=== PATIENT | female | born 1980 ===

== ENCOUNTER → 2018-11-10 | Day surgery (SDC) | payer OTHER ==
[~2018-11-10] MED LIST: KETO10TA2 PO; PERCOCET 5-3251 EACH PO; TYLENOL-CODEINE1 TAB PO; [UNRECOGNIZED DRUG - OTHER]
== END | disposition home or self-care (01) ==
LOC: ADM 11-07 10:45 → CIR.AMB 10:45 → AMB-ENDOS 10:45 → CIR.AMB 10:55
DX: N87.0 Mild cervical dysplasia (principal)